=== PATIENT | male | born 2000 | race African-American/Black ===

== ENCOUNTER 2021-09-07 14:53 | Emergency (ER) | payer SELFPAY ==
[2021-09-07 17:20] LABS: Bilirubin Neg (Negative); Blood, Urine Negative (Negative); Clarity Clear (Clear); Glucose, Urine (Dipstick) Normal (Negative); Ketone, Urine Negative (Negative); Leukocyte 25 (Negative); Nitrite Negative (Negative); Protein, Urine (Dipstick) 15 mg/dl (Neg-Trace); Specific Gravity, Urine 1.015 (1.002-1.036); Urobilinogen Normal mg/dL (Less than 2); pH, Urine 6.5 (5.0-9.0)
[2021-09-07 17:35] LABS: RBC/HPF 0-3 HPF (0-3)
[2021-09-07 17:36] LABS: Bacteria/HPF Rare-Few HPF (None Seen); Renal Epithelial 0-3 HPF (None Seen); Squamous Epithelial 0-3 HPF (0-3); Transitional Epithelial 0-3 HPF (None Seen)
[2021-09-07] MEDS ORDERED: Azithromycin 250 MG TAB ONE (18:15)
[2021-09-07] MEDS ORDERED: cefTRIAXone\\ROCEPHIN 1 GM VIAL ONE (18:15)
[2021-09-07] MEDS ORDERED: Sterile Water 10 ML ONE (18:16)
== END 2021-09-07 18:55 | disposition home or self-care (01) ==
LOC: CSHERS 14:53
DX: R30.0 Dysuria (principal); R10.9 Unspecified abdominal pain
CPT/HCPCS: 81003; 81015; 87086; 99283; J0696

== ENCOUNTER 2022-06-21 20:33 | Emergency (ER) | payer SELFPAY ==
[2022-06-21] MEDS ORDERED: cefTRIAXone\\ROCEPHIN 1 GM VIAL ONE (22:42)
[2022-06-21] MEDS ORDERED: Sterile Water 10 ML ONE (22:42)
[2022-06-22 19:38] LABS: Chlam.trachomatis by PCR,Urine Not Detected (NotDetected)
== END 2022-06-21 23:12 | disposition home or self-care (01) ==
LOC: CSHERS 20:33
DX: R30.0 Dysuria (principal); Z20.2 Contact with and (suspected) exposure to infections with a predominantly sexual mode of transmission
CPT/HCPCS: 87491; 87591; 96372; 99283; J0696